=== PATIENT | male | born 1985 | race Caucasian/White ===

== ENCOUNTER 2020-08-04 21:31 | Emergency (ER) | payer MEDICAID, SELFPAY ==
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
[2020-08-04 21:43] VITALS: BMI 29.2
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
--- NOTE | 2020-08-04 21:46 | PC.NURSE ---
radiology at bedside
--- NOTE | 2020-08-04 21:49 | PC.NURSE ---
call placed to [facility]. facesheet faxed per domonique
[2020-08-04 21:53] VITALS: BP 138/52; PULSE 131; RESP 18; TEMP 36.7; O2SAT 97
--- NOTE | 2020-08-04 21:58 | PC.NURSE ---
on phone with at this time.
[2020-08-04 21:59] LABS: Microscopic, Urine URINE MICROSCOPIC (MICROSCOPIC)
[2020-08-04 22:03] LABS: Basophils # 0.2 K/mm3 (0-0.2); Basophils % 1.9 % (0.1-2.0); Eosinophils # 0.2 K/mm3 (0.0-0.4); Eosinophils % 2.2 % (0.1-12.0); Hematocrit 55.8 % (42.0-52.0); Lymphocytes # 3.3 K/mm3 (0.7-4.5); Lymphocytes % 36.6 % (10-50); Mean Corpuscular HGB Conc 33.7 g/dL (31.8-35.4); Mean Corpuscular Hemoglobin 30.2 pg (27.0-31.2); Mean Corpuscular Volume 89.5 fl (80-94); Mean Platelet Volume 9.5 fl (7.4-10.4); Monocytes # 0.6 K/mm3 (0.1-1.0); Monocytes % 6.2 % (1.7-9.3); Neutrophils # 4.8 K/mm3 (1.8-7.8); Platelet Count 437 K/mm3 (142-424); Red Blood Count 6.24 M/mm3 (4.60-6.20); White Blood Count 9.1 K/mm3 (4.8-10.8)
[2020-08-04 22:04] LABS: Appearance,Urine CLEAR (Clear); Bilirubin,Urine Negative (Negative); Blood, Urine Negative (Negative); Color,Urine YELLOW (Yellow); Glucose,Urine (UA) Negative (Negative); Ketones,Urine Negative (Negative); Leukocyte Esterase,Urine Negative (Negative); Nitrate,Urine Negative (Negative); PH,Urine 5.5 (5.0-8.5); Protein,Urine Negative (Negative); Specific Gravity, Urine >= 1.030 (1.005-1.030); Urobilinogen,Urine 0.2 EU/dl (0.2)
[2020-08-04 22:08] VITALS: BP 141/75; PULSE 121; RESP 22; O2SAT 96
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
--- NOTE | 2020-08-04 22:15 | PC.NURSE ---
remains on hold
[2020-08-04 22:16] LABS: Barbiturates Screen,Urine Negative ng/ml (<200)
[2020-08-04 22:16] LABS: Chloride 107 mmol/L (98-107)
[2020-08-04 22:17] LABS: Benzodiazepines Screen,Urine Negative ng/ml (<200)
[2020-08-04 22:17] LABS: Potassium 3.9 mmoL/L (3.5-5.1); Sodium 142 mmol/L (136-145)
[2020-08-04 22:17] LABS: Hemoglobin 18.8 g/dL (14.1-18.0)
[2020-08-04 22:18] LABS: Amphetamine/Metha Screen,Urine Negative ng/ml (<1000); Cannabinoid Screen,Urine Negative ng/ml (<50)
[2020-08-04 22:19] LABS: Alanine Aminotransferase 25 U/L (12-78); Alkaline Phosphatase 78 U/L (38-126); Anion Gap 13.9 mEq/L (5-15); Aspartate Amino Transferase 34 U/L (17-59); Bilirubin,Total 0.6 mg/dl (0.2-1.3); Blood Urea Nitrogen 8 mg/dl (9-20); Carbon Dioxide 25 mmol/L (22.0-30.0); Creatinine Clearance Estimated 126 mL/min (50-200); Estimated Glomerular Filt Rate 97 ml/min (>60); GFR (African American) 117 ML/MIN (>60)
[2020-08-04 22:19] LABS: Cocaine Screen,Urine Negative ng/ml (<300)
[2020-08-04 22:20] LABS: Methadone Screen,Urine Negative ng/ml (<300); Opiate Screen,Urine Negative ng/ml (<300)
[2020-08-04 22:20] LABS: Albumin Level 4.6 g/dl (3.5-5.0); Albumin/Globulin Ratio 1.7 (1.1-1.8); Calcium 9.1 mg/dl (8.4-10.2); Ethyl Alcohol 135 mg/dl (0-10); Globulin 2.7 g/dL (1.3-3.2); Glucose 116 mg/dl (74-100); Total Protein,Serum 7.3 g/dl (6.3-8.2)
[2020-08-04 22:21] LABS: Phencyclidine Screen,Urine Negative ng/ml (<25)
[2020-08-04 22:23] VITALS: BP 130/71; PULSE 135; RESP 24; O2SAT 96
--- NOTE | 2020-08-04 22:26 | PC.NURSE ---
still on hold with [facility]
--- NOTE | 2020-08-04 22:30 | PC.NURSE ---
speaking with [facility] staff
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
--- NOTE | 2020-08-04 22:32 | PC.NURSE ---
[facility] CR accepted to ER
[2020-08-04 22:49] VITALS: BP 144/78; PULSE 141; RESP 17; TEMP 36.7; O2SAT 98
[2020-08-04 23:03] LABS: Bacteria,Urine 1+ /lpf; Mucus,Urine 1+ /lpf
[2020-08-13 13:43] LABS: POC Glucose,Bedside 128 (70-110)
== END 2020-08-04 22:50 | disposition short-term general hospital (02) ==
PROVIDERS: Emergency Provider Emergency Medicine
DX: S06.0X1A Concussion with loss of consciousness of 30 minutes or less, initial encounter (principal); V49.9XXA Car occupant (driver) (passenger) injured in unspecified traffic accident, initial encounter; Y92.488 Other paved roadways as the place of occurrence of the external cause; S16.1XXA Strain of muscle, fascia and tendon at neck level, initial encounter; F10.10 Alcohol abuse, uncomplicated; F17.210 Nicotine dependence, cigarettes, uncomplicated; M54.5 Low back pain; R10.32 Left lower quadrant pain
CPT/HCPCS: 36415; 71045; 72170; 80053; 80305; 81001; 82962; 85025; 96365; 96366; 96375; 99283; J2405

== ENCOUNTER 2021-07-02 18:33 | Emergency (ER) | payer MEDICAID, SELFPAY ==
[2021-07-02 19:07] VITALS: BP 135/74; PULSE 79; RESP 16; TEMP 36.7; O2SAT 96; BMI 26.7
--- NOTE | 2021-07-02 19:29 | [facility].EDUTC ---
[facility] Disposition Clinical Impression: Need for tetanus, diphtheria, and acellular pertussis (Tdap) vaccine Laceration of finger Qualifiers: Encounter type: initial encounter Finger: index finger Damage to nail status: without damage Foreign body presence: without foreign body Laterality: right Qualified Code(s): S61.210A - Laceration without foreign body of right index finger without damage to nail, initial encounter Disposition: Home, Self-Care Condition on Discharge: Good Instructions: DI for Laceration Repair-Skin Glue Additional Instructions: Keep clean and dry Prescriptions: cephALEXin [Cephalexin 500mg Tab] 500 mg PO Q6H 10 Days #40 tab Transmission Status: Pending to [id number] Referrals: Provider,Referral, [Primary Care Provider] - Time of Disposition: 19:41 Medical Decision Making - Guillermo Inquiry Pt receiving controlled substance: No Vital Signs: 07/02/21 19:07 Temperature 98.1 F Temperature Source Oral Pulse Rate [Right Brachial] 79 Respiratory Rate 16 Blood Pressure [Right Arm] 135/74 Blood Pressure Mean [Right Arm] 94 Blood Pressure Source [Right Arm] Automatic Cuff Blood Pressure Position [Right Arm] Sitting 02 Sat by Pulse Oximetry 96 Oxygen Delivery Method Room Air [facility] HPI - General Stated complaint: AO 07/01@2100 LAC r INDEX FINGER Time Seen by Provider: 07/02/21 19:29 Mode of Arrival: Ambulatory Source of Information: Patient Limitations: No Limitations Description of Symptoms (Recalled from Triage Doc. by RN): cut finger HEENT Symptoms (Recalled from RN notes): No Resp Symptoms (Recalled from RN notes): No Skin Symptoms (Recalled from RN notes): Yes MS Symptoms (Recalled from RN notes): No Functional Status (Recalled from RN notes): yes - History of Present Illness Provider Complaint: Laceration right index finger last night working with sheet metal. Cleaned with peroxide, wrapped with bandage. Tonight it is throbbing and he is concerned. Onset (ago): day(s) (1) Location: right, upper extremity Relieving factors: none Exacerbating factors: none Associated symptoms: denies other symptoms Treatments prior to arrival: none - Related Data Home Medications Medication Instructions Recorded Confirmed Buspirone HCl [Buspirone 15 mg 15 mg PO BID 07/02/21 07/02/21 Tablets] Previous Rx's Medication Instructions Recorded cephALEXin [Cephalexin 500mg Tab] 500 mg PO Q6H 10 Days #40 tab 07/02/21 Allergies Allergy/AdvReac Type Severity Reaction Status Date / Time latex Allergy Verified 11/20/18 20:24 NSAIDS (Non-Steroidal Allergy Verified 11/20/18 20:24 Anti-Inflamma - Worker's Comp Is this a Worker's Comp case?: No Is this an [facility] Worker's Comp?: No Is this a [place] Worker's Comp?: No [facility] History - Hepatitis A Screen Drug use history?: No High risk sexual behaviors?: No History of sexually transmitted infection?: No Currently employed?: No Childcare worker?: No Do you have indoor plumbing?: Yes Do you have electricity?: Yes Attestation statement:: This patient has been screened for Hepatitis A risk factors. I have reviewed the patient's past medical history: Yes Medical History: Denies:: Cancer, Diabetes Mellitus Type 1, Diabetes Mellitus Type 2, MRSA Amputation: No - Social History Smoking Status: Current every day smoker Tobacco Type: cigarettes # Packs/Day (cigarettes): 0 Alcohol Intake: never Alcohol Intake Frequency:: holidays/special occasions only Substance Use Type: marijuana Occupational Status: other ROS Obtained: Yes All systems reviewed & no additional complaints - Musculoskeletal Musculoskeletal: Reports as per HPI - Integumentary/Breasts Skin/Breast: Reports as per HPI Physical Exam - General General appearance: alert, in no apparent distress - Head Head exam: normocephalic - Eye Eye exam: Present: PERRL - Chest Chest inspection: Present: normal inspection - Respirator
[2021-07-02 19:58] VITALS: BP 135/74; PULSE 79; RESP 18; TEMP 36.7
== END 2021-07-02 19:58 | disposition home or self-care (01) ==
PROVIDERS: Emergency Provider Emergency Medicine
DX: S61.210A Laceration without foreign body of right index finger without damage to nail, initial encounter (principal); W26.9XXA Contact with unspecified sharp object(s), initial encounter; Z23 Encounter for immunization
CPT/HCPCS: 90715; 99202; G0463

== ENCOUNTER → 2021-09-12 16:11 | Outpatient (CLI) | payer MEDICAID, SELFPAY | PROVIDERS: Visit Provider Nurse Practitioner Family | DX: Z20.822 Contact with and (suspected) exposure to COVID-19 (principal) | CPT/HCPCS: C9803; U0003; U0005 ==